=== PATIENT | male | born 1950 | race Two or more races ===

== ENCOUNTER 2017-09-20 07:00 | Day surgery (SDC) | payer MEDICAID ==
[~2017-09-20] VITALS: Ht 170.2 cm; Wt 127.0 kg
[~2017-09-20 07:00] MED LIST: AMIO200T33 PO; CARV12.544 PO; CYCL1TAB18 PO; GLIP1TAB38 PO; HYDR-4683 PO; INSLANTI SC; INSLISPI SC; LISI-646 PO; OMEP20TA PO; PREG100C PO; SIMV-8 PO; TRAM50TA2 PO; WARF2.5T39 PO
[2017-09-20] MEDS ORDERED: LIDOCAINE VISCOUS 2% 15ML UD ONE (07:56)
[2017-09-20] MEDS ORDERED: FLUMAZENIL 0.1 MG/ML INJ 10ML MDV IV ONE ×2 (07:56→08:00)
[2017-09-20] MEDS ORDERED: NALOXONE HCL 0.4 MG/ML VIAL ONE (07:56)
[2017-09-20] MEDS ORDERED: MIDAZOLAM HCL 1MG/1ML-2 ML VIAL ONE (07:57)
[2017-09-20] MEDS ORDERED: fentaNYL CITRATE 100 MCG/2 ML VL ONE (07:57)
[2017-09-20] MEDS ORDERED: fentaNYL CITRATE 100 MCG/2 ML VL IV ONE (08:00)
[2017-09-20] MEDS ORDERED: NALOXONE HCL 0.4 MG/ML VIAL IV ONE (08:00)
[2017-09-20] MEDS ORDERED: LIDOCAINE VISCOUS 2% 15ML UD PO ONE (08:00)
[2017-09-20] MEDS ORDERED: MIDAZOLAM HCL 5 MG/ML-1ML VIAL IV ONE (08:00)
== END 2017-09-20 09:25 | disposition home or self-care (01) ==
LOC: CATH 07:00
PROVIDERS: ATTEND Internal Medicine
DX: I48.91 Unspecified atrial fibrillation (principal); Z88.8 Allergy status to other drugs, medicaments and biological substances; Z91.041 Radiographic dye allergy status; E66.01 Morbid (severe) obesity due to excess calories; Z68.41 Body mass index [BMI] 40.0-44.9, adult; F10.99 Alcohol use, unspecified with unspecified alcohol-induced disorder; Z87.891 Personal history of nicotine dependence; I10 Essential (primary) hypertension; E78.5 Hyperlipidemia, unspecified; E11.40 Type 2 diabetes mellitus with diabetic neuropathy, unspecified
CPT/HCPCS: 92960; J3010; J7030; 93005; 93312; 99152; J2250

== ENCOUNTER 2020-12-02 09:27 | Emergency (ER) | payer BC, MEDICAID ==
[~2020-12-02] VITALS: Ht 170.2 cm; Wt 129.3 kg
[~2020-12-02 09:27] MED LIST changes: +CYCL10TA6 PO; -CYCL1TAB18 PO; +GLIP10TA16 PO; -GLIP1TAB38 PO; -HYDR-4683 PO; +HYDR-4833 PO; -LISI-646 PO; +LISI20TA28 PO
[2020-12-02 10:05] VITALS: BP 122/79
[2020-12-02 13:17] LABS: Basophils # (auto) 0 10 ^3/uL (0-0.2); Basophils % (auto) 0.4 % (0.0-2.0); Eosinophils # (auto) 0 10 ^3/uL (0-0.8); Eosinophils % (auto) 0.5 % (0.0-7.0); Hemoglobin 13.6 g/dL (13.5-17.5); Lymphocytes # (auto) 1.6 10 ^3/uL (0.4-5.4); Lymphocytes % (auto) 19.1 % (10.0-50.0); Mean Corpuscular Hemoglobin 31.2 pg (28.0-32.0); Mean Corpuscular Hgb Conc. 34.1 g/dL (32.0-36.0); Mean Corpuscular Volume 91.7 fL (80.0-100.0); Monocytes # (auto) 0.9 10 ^3/uL (0-1.3); Monocytes % (auto) 10.5 % (0.0-12.0); Neutrophils # (auto) 5.7 10 ^3/uL (1.6-8.6); Neutrophils % (auto) 69.5 % (37.0-80.0); Platelet Count (auto) 173 10^3/uL (140-450); Red Blood Cells 4.36 10^6/uL (4.5-5.90); Red Cell Distribution Width 13.3 % (11.8-14.3); White Blood Cell 8.2 10^3/uL (4.4-10.8)
[2020-12-02 13:32] LABS: Urine Bacteria NONE SEEN /hpf (None Seen); Urine Blood Negative /uL (Negative); Urine Specific Gravity 1.016 (1.001-1.035); Urine WBC 34 /hpf (0 - 3)
[2020-12-02 13:33] LABS: Albumin 3.3 g/dL (3.4-5.0); Calcium 8.2 mg/dL (8.5-10.1); Potassium 4.3 mmol/L (3.5-5.1)
[2020-12-02 13:36] LABS: BUN/Creatinine Ratio 10.7; Bilirubin, Total 0.6 mg/dL (0.2-1.0); Total Protein 7.4 g/dL (6.4-8.2)
== END 2020-12-02 14:03 | disposition home or self-care (01) ==
LOC: ER 09:27
DX: K57.32 Diverticulitis of large intestine without perforation or abscess without bleeding (principal); N39.0 Urinary tract infection, site not specified; I10 Essential (primary) hypertension; E11.9 Type 2 diabetes mellitus without complications; E78.5 Hyperlipidemia, unspecified; Z79.01 Long term (current) use of anticoagulants; Z79.4 Long term (current) use of insulin; Z79.899 Other long term (current) drug therapy; Z88.8 Allergy status to other drugs, medicaments and biological substances; Z91.041 Radiographic dye allergy status
CPT/HCPCS: 36415; 74176; 80053; 81001; 85025

== ENCOUNTER 2022-01-31 00:59 | Emergency (ER) | payer MEDICARE, MEDICAID ==
[~2022-01-31] VITALS: Ht 170.2 cm; Wt 127.3 kg
[~2022-01-31 00:59] MED LIST changes: +CYCL-839 PO; -CYCL10TA6 PO
[2022-01-31 02:22] LABS: Basophils # (auto) 0 10 ^3/uL (0-0.2); Basophils % (auto) 0.7 % (0.0-2.0); Eosinophils # (auto) 0.1 10 ^3/uL (0-0.8); Eosinophils % (auto) 1.2 % (0.0-7.0); Hematocrit 42.1 % (41.0-53.0); Hemoglobin 13.7 g/dL (13.5-17.5); Lymphocytes # (auto) 1.9 10 ^3/uL (0.4-5.4); Lymphocytes % (auto) 33.8 % (10.0-50.0); Mean Corpuscular Hemoglobin 30.5 pg (28.0-32.0); Mean Corpuscular Hgb Conc. 32.6 g/dL (32.0-36.0); Mean Corpuscular Volume 93.7 fL (80.0-100.0); Monocytes # (auto) 0.6 10 ^3/uL (0-1.3); Neutrophils # (auto) 2.9 10 ^3/uL (1.6-8.6); Neutrophils % (auto) 53.3 % (37.0-80.0); Red Blood Cells 4.49 10^6/uL (4.5-5.90); Red Cell Distribution Width 13.6 % (11.8-14.3); White Blood Cell 5.5 10^3/uL (4.4-10.8)
[2022-01-31 03:01] LABS: Albumin 3.5 g/dL (3.4-5.0); BUN/Creatinine Ratio 10.6; Calcium 8.5 mg/dL (8.5-10.1); Magnesium 2.2 mg/dL (1.6-2.6); Potassium 3.9 mmol/L (3.5-5.1)
[2022-01-31 03:04] LABS: Bilirubin, Total 0.3 mg/dL (0.2-1.0); Total Protein 7.2 g/dL (6.4-8.2)
[2022-01-31 08:00] LABS: Urine Bacteria FEW /hpf (None Seen); Urine Blood Negative /uL (Negative); Urine Hyaline Cast FEW /lpf (0 - 2); Urine Mucus FEW (None Seen); Urine Specific Gravity 1.023 (1.001-1.035); Urine WBC 170 /hpf (0 - 3); Urine WBC Clumps PRESENT /hpf (None Seen)
[2022-01-31] MEDS: cefTRIAXone 1GM/50ML D5W 50 ML IV ONE (10:34)
[2022-01-31] MEDS ORDERED: DEX4T PO (14:46)
[2022-01-31] MEDS ORDERED: MECL1TAB42 PO (14:46)
[2022-01-31] MEDS ORDERED: CEFD300C2 PO (14:46)
[2022-01-31] MEDS: DexAMETHasone SOD PHOS 10MG/1ML VIAL INJ IV ONE (14:56)
[2022-01-31 15:10] VITALS: BP 152/74
== END 2022-01-31 15:16 | disposition home or self-care (01) ==
LOC: ER 00:59
DX: R42 Dizziness and giddiness (principal); E78.5 Hyperlipidemia, unspecified; I10 Essential (primary) hypertension; F07.81 Postconcussional syndrome; E11.65 Type 2 diabetes mellitus with hyperglycemia; N39.0 Urinary tract infection, site not specified; E11.21 Type 2 diabetes mellitus with diabetic nephropathy
CPT/HCPCS: 36415; 70450; 80053; 81001; 83735; 84484; 85025; 93005; 96365; 96375; 99285; J0696; J1100

== ENCOUNTER 2022-10-21 23:57 | Emergency (ER) | payer MEDICARE, MEDICAID ==
[~2022-10-21] VITALS: Ht 167.6 cm; Wt 118.0 kg
[~2022-10-21 23:57] MED LIST changes: +CEFD300C2 PO; +DEX4T PO; +MECL1TAB42 PO
[2022-10-22 00:39] LABS: Basophils # (auto) 0.1 10 ^3/uL (0-0.2); Basophils % (auto) 0.9 % (0.0-2.0); Eosinophils # (auto) 0 10 ^3/uL (0-0.8); Eosinophils % (auto) 0.2 % (0.0-7.0); Hematocrit 43.8 % (41.0-53.0); Lymphocytes # (auto) 1.2 10 ^3/uL (0.4-5.4); Lymphocytes % (auto) 10.8 % (10.0-50.0); Mean Corpuscular Hemoglobin 31.8 pg (28.0-32.0); Mean Corpuscular Hgb Conc. 34.2 g/dL (32.0-36.0); Mean Corpuscular Volume 92.9 fL (80.0-100.0); Monocytes # (auto) 0.9 10 ^3/uL (0-1.3); Monocytes % (auto) 7.9 % (0.0-12.0); Neutrophils # (auto) 8.7 10 ^3/uL (1.6-8.6); Neutrophils % (auto) 80.2 % (37.0-80.0); Nucleated Red Blood Cells % 0.1 %; Red Blood Cells 4.72 10^6/uL (4.5-5.90); Red Cell Distribution Width 13.4 % (11.8-14.3); White Blood Cell 10.8 10^3/uL (4.4-10.8)
[2022-10-22 00:54] LABS: Albumin 3.3 g/dL (3.4-5.0); BUN/Creatinine Ratio 9.6 (10.0-20.0); Calcium 8.7 mg/dL (8.5-10.1); Potassium 3.7 mmol/L (3.5-5.1)
[2022-10-22 00:57] LABS: Bilirubin, Total 0.4 mg/dL (0.2-1.0); Total Protein 7.9 g/dL (6.4-8.2)
[2022-10-22 05:10] VITALS: BP 112/70
[2022-10-22] MEDS ORDERED: AZIT250T9 PO (07:00)
== END 2022-10-22 07:11 | disposition home or self-care (01) ==
LOC: ER 23:57
DX: R06.02 Shortness of breath (principal); R50.9 Fever, unspecified; R05.9 Cough, unspecified; I11.0 Hypertensive heart disease with heart failure; I50.9 Heart failure, unspecified; I48.91 Unspecified atrial fibrillation; E11.9 Type 2 diabetes mellitus without complications; E78.5 Hyperlipidemia, unspecified; Z20.822 Contact with and (suspected) exposure to COVID-19
CPT/HCPCS: 36415; 71045; 80053; 83880; 84484; 85025; 87426; 87804; 93005

== ENCOUNTER 2023-02-25 20:36 | Inpatient (IN) | payer OTHER, MEDICAID ==
[~2023-02-25] VITALS: Ht 170.2 cm; Wt 118.7 kg
[~2023-02-25 20:36] MED LIST changes: +AZIT-43 PO; -GLIP10TA16 PO; +GLIP10TA21 PO; -LISI20TA28 PO; +LISI20TA56 PO; -SIMV-8 PO; +SIMV20TA20 PO; +WARF-110 PO; -WARF2.5T39 PO
[2023-02-25 21:02] VITALS: RESP 20; O2SAT 96
[2023-02-25 21:40] LABS: Basophils # (auto) 0.1 10 ^3/uL (0-0.2); Basophils % (auto) 0.8 % (0.0-2.0); Eosinophils # (auto) 0.2 10 ^3/uL (0-0.8); Eosinophils % (auto) 1.9 % (0.0-7.0); Hematocrit 42.8 % (41.0-53.0); Hemoglobin 14.4 g/dL (13.5-17.5); Lymphocytes # (auto) 2.5 10 ^3/uL (0.4-5.4); Lymphocytes % (auto) 30.8 % (10.0-50.0); Mean Corpuscular Hemoglobin 31.1 pg (28.0-32.0); Mean Corpuscular Hgb Conc. 33.6 g/dL (32.0-36.0); Mean Corpuscular Volume 92.6 fL (80.0-100.0); Monocytes # (auto) 0.9 10 ^3/uL (0-1.3); Monocytes % (auto) 11.4 % (0.0-12.0); Neutrophils # (auto) 4.4 10 ^3/uL (1.6-8.6); Neutrophils % (auto) 55.1 % (37.0-80.0); Nucleated Red Blood Cells % 0.1 %; Red Blood Cells 4.62 10^6/uL (4.5-5.90); Red Cell Distribution Width 13.7 % (11.8-14.3); White Blood Cell 8.1 10^3/uL (4.4-10.8)
[2023-02-25 21:50] LABS: Alanine Aminotransferase 17 U/L (7-40); Alkaline Phosphatase 57 U/L (46-116); Anion Gap 8 (5-15); Aspartate Aminotransferase 17 U/L (13-40); BUN/Creatinine Ratio 6.3 (10.0-20.0); Blood Urea Nitrogen 14 mg/dL (9-23); Calcium 9.2 mg/dL (8.5-10.1); Carbon Dioxide 23 mmol/L (20-30); Chloride 106 mmol/L (98-107); Glucose 276 mg/dL (74-106); Magnesium 1.4 mg/dL (1.6-2.6); Potassium 3.9 mmol/L (3.5-5.1); Sodium 137 mmol/L (136-145)
[2023-02-25 21:51] LABS: Albumin 4.2 g/dL (3.2-4.8); Bilirubin, Total 0.9 mg/dL (0.2-1.0); Lactic Acid w/Reflex 2.9 mmol/L (0.4-2.0)
[2023-02-25 22:53] LABS: INR 1.19 (0.9-1.15); Prothrombin Time 12.4 sec (9.3-11.8)
[2023-02-25] MEDS ORDERED: NOREPINEPHRINE 8 MG/250ML KIT 250 ML IV SCH (23:45)
[2023-02-25] MEDS ORDERED: NOREPINEPHRINE 8 MG/250ML KIT 250 ML IV ONE (23:49)
[2023-02-26] VITALS (19 sets, daily range): BP systolic 101–147; BP diastolic 56–71; PULSE 57–65; RESP 9–21; TEMP 96.1–98.3; O2SAT 92–100
[2023-02-26] MEDS ORDERED: cefTRIAXone 1GM/50ML D5W 50 ML IV ONE (02:45)
[2023-02-26] MEDS ORDERED: LIDOCAINE 2%HCL (LOCAL ANESTH.) INJ 10ml MDV IJ ONE (03:00)
[2023-02-26] MEDS ORDERED: hydrALAZINE HCL 10 MG TAB PO PRN (05:30)
[2023-02-26] MEDS ORDERED: DEXTROSE (50%) 50ML SYRG IV PRN (05:30)
[2023-02-26] MEDS ORDERED: ONDANSETRON HCL 4 MG/2 ML VIAL IV PRN (05:30)
[2023-02-26] MEDS ORDERED: ACETAMINOPHEN 325 MG TAB PO PRN (05:30)
[2023-02-26] MEDS ORDERED: HYDROcodone-ACET 5/325MG TAB PO PRN (05:30)
[2023-02-26] MEDS ORDERED: SODIUM CHLORIDE 0.9% 1,000 ML IV ONE (06:00)
[2023-02-26] MEDS: MAGNESIUM SULFATE 1GM/100ML 100 ML IV SCH ×2 (06:30→07:01)
[2023-02-26 06:31] LABS: Anion Gap 7 (5-15); Carbon Dioxide 25 mmol/L (20-30); Chloride 106 mmol/L (98-107); Potassium 3.6 mmol/L (3.5-5.1); Sodium 138 mmol/L (136-145)
[2023-02-26 06:32] LABS: Calcium 8.5 mg/dL (8.7-10.4)
[2023-02-26 06:37] LABS: BUN/Creatinine Ratio 7.3 (10.0-20.0); Blood Urea Nitrogen 14 mg/dL (9-23)
[2023-02-26 06:42] LABS: Glucose 167 mg/dL (74-106)
[2023-02-26] MEDS: InsuLIN REG 1unit/0.01ml Soln (100units/ml) SC SCH ×4 (07:09→22:11)
[2023-02-26] MEDS: ACCU-CHEK COMFORT CURVE STRIP VI SCH ×4 (07:09→22:10)
[2023-02-26 07:19] LABS: Urine Bacteria FEW /hpf (None Seen); Urine Blood TRACE /uL (Negative); Urine Clarity Clear (Clear); Urine Color Yellow (Yellow); Urine Hyaline Cast MANY /lpf (0 - 2); Urine Mucus FEW (None Seen); Urine Protein, UAD TRACE (Negative); Urine Specific Gravity 1.013 (1.001-1.035); Urine Urobilinogen Normal (Negative); Urine WBC 24 /hpf (0 - 3); Urine pH 5.5 (5.0-8.0)
[2023-02-26] MEDS: FAMOTIDINE 20 MG TAB PO SCH (10:39)
[2023-02-26 11:27] LABS: Protein, Urine 25.2 mg/dL (0.0-11.9)
[2023-02-26 11:30] LABS: Creatinine, Urine 113.32 mg/dL (30.0-125.0); Urine Protein/Creatinine Ratio 0.22
[2023-02-26] MEDS ORDERED: RIVA20TA PO (19:42)
[2023-02-26] MEDS ORDERED: SITA100T7 PO (19:43)
[2023-02-27] VITALS (8 sets, daily range): BP systolic 114–137; BP diastolic 58–69; PULSE 60–67; RESP 17–20; TEMP 97.3–98.3; O2SAT 97–100
[2023-02-27] MEDS: InsuLIN REG 1unit/0.01ml Soln (100units/ml) SC SCH ×4 (06:03→21:31)
[2023-02-27] MEDS: ACCU-CHEK COMFORT CURVE STRIP VI SCH ×4 (06:03→21:27)
[2023-02-27 06:42] LABS: Basophils # (auto) 0 10 ^3/uL (0-0.2); Basophils % (auto) 0.7 % (0.0-2.0); Eosinophils # (auto) 0.1 10 ^3/uL (0-0.8); Eosinophils % (auto) 2.6 % (0.0-7.0); Hematocrit 41.9 % (41.0-53.0); Lymphocytes # (auto) 1.5 10 ^3/uL (0.4-5.4); Lymphocytes % (auto) 29.1 % (10.0-50.0); Mean Corpuscular Hemoglobin 31.2 pg (28.0-32.0); Mean Corpuscular Hgb Conc. 33.4 g/dL (32.0-36.0); Mean Corpuscular Volume 93.4 fL (80.0-100.0); Monocytes # (auto) 0.6 10 ^3/uL (0-1.3); Monocytes % (auto) 10.9 % (0.0-12.0); Neutrophils # (auto) 2.9 10 ^3/uL (1.6-8.6); Neutrophils % (auto) 56.7 % (37.0-80.0); Red Blood Cells 4.48 10^6/uL (4.5-5.90); Red Cell Distribution Width 13.6 % (11.8-14.3); White Blood Cell 5.1 10^3/uL (4.4-10.8)
[2023-02-27 06:58] LABS: Anion Gap 4 (5-15); Calcium 8.9 mg/dL (8.7-10.4); Carbon Dioxide 29 mmol/L (20-30); Chloride 105 mmol/L (98-107); Potassium 3.9 mmol/L (3.5-5.1); Sodium 138 mmol/L (136-145)
[2023-02-27 07:04] LABS: Glucose 261 mg/dL (74-106)
[2023-02-27 07:08] LABS: BUN/Creatinine Ratio 8.1 (10.0-20.0); Blood Urea Nitrogen 11 mg/dL (9-23)
[2023-02-27] MEDS: FAMOTIDINE 20 MG TAB PO SCH (10:16)
[2023-02-27] MEDS: cefTRIAXone 1GM/50ML D5W 50 ML IV SCH (10:16)
[2023-02-27] MEDS ORDERED: INSLANTI SC (18:28)
[2023-02-27] MEDS ORDERED: INSULIN LANTUS (GLARGINE) 1 /0.01ml (100units/ml) SC SCH (22:00)
[2023-02-28 05:00] VITALS: BP 117/60; PULSE 59; RESP 16; TEMP 98; O2SAT 100
[2023-02-28] MEDS: ACCU-CHEK COMFORT CURVE STRIP VI SCH ×2 (06:12→11:46)
[2023-02-28] MEDS: InsuLIN REG 1unit/0.01ml Soln (100units/ml) SC SCH ×2 (06:14→11:56)
[2023-02-28 08:00] VITALS: PULSE 59
[2023-02-28 09:24] VITALS: BP 116/57; PULSE 64; RESP 20; TEMP 97.7; O2SAT 100
[2023-02-28] MEDS: FAMOTIDINE 20 MG TAB PO SCH (09:45)
[2023-02-28] MEDS: cefTRIAXone 1GM/50ML D5W 50 ML IV SCH (09:45)
[2023-02-28 13:16] VITALS: BP 119/61; PULSE 64; RESP 18; TEMP 98.1; O2SAT 99
[2023-02-28] MEDS ORDERED: MUPI2OIN2 (13:51)
[2023-02-28] MEDS ORDERED: MUPIROCIN 2% OINT 15gm or 22gm FOR MRSA NARES TOP SCH (22:00)
== END 2023-02-28 17:00 | disposition home or self-care (01) | DRG 640 ==
LOC: ER 20:36 → TELE 02-26 05:42 → ICU WEST 02-26 07:32 → TELE-CENTR 02-26 18:36
PROVIDERS: ADMIT Nurse Practitioner Family; ATTEND Internal Medicine
DX: E86.0 Dehydration (principal); N17.0 Acute kidney failure with tubular necrosis; I13.0 Hypertensive heart and chronic kidney disease with heart failure and stage 1 through stage 4 chronic kidney disease, or unspecified chronic kidney disease; N39.0 Urinary tract infection, site not specified; E66.9 Obesity, unspecified; E87.20 Acidosis, unspecified; I95.9 Hypotension, unspecified; E83.42 Hypomagnesemia; E11.22 Type 2 diabetes mellitus with diabetic chronic kidney disease; E11.65 Type 2 diabetes mellitus with hyperglycemia; I25.10 Atherosclerotic heart disease of native coronary artery without angina pectoris; I48.91 Unspecified atrial fibrillation; E78.00 Pure hypercholesterolemia, unspecified; I50.9 Heart failure, unspecified; R00.1 Bradycardia, unspecified; N18.31 Chronic kidney disease, stage 3a; B95.62 Methicillin resistant Staphylococcus aureus infection as the cause of diseases classified elsewhere; Z91.041 Radiographic dye allergy status; Z68.39 Body mass index [BMI] 39.0-39.9, adult
CPT/HCPCS: 36415; 70450; 71045; 76775; 80048; 80053; 81001; 82306; 82570; 82962; 83036; 83605; 83735; 83880; 83970; 84100; 84156; 84300; 84484; 85025; 85610; 85730; 87040; 87081; 87086; 93005; 97163; 99291; G0378; J0696; J1815; J2001

== ENCOUNTER 2023-04-27 00:09 | Inpatient (IN) | payer OTHER, MEDICAID ==
[2023-04-27] VITALS (7 sets, daily range): BP systolic 127–149; BP diastolic 56–73; PULSE 66–91; RESP 12–21; TEMP 97.6–101.4; O2SAT 93–99
[~2023-04-27] VITALS: Ht 170.2 cm; Wt 116.0 kg
[~2023-04-27 00:09] MED LIST changes: -AMIO200T33 PO; -AZIT-43 PO; -CARV12.544 PO; -CEFD300C2 PO; -CYCL-839 PO; -DEX4T PO; -LISI20TA56 PO; +MUPI2OIN2; +RIVA20TA PO; +SITA100T7 PO; -TRAM50TA2 PO; -WARF-110 PO
[2023-04-27 00:52] LABS: Basophils # (auto) 0 10 ^3/uL (0-0.2); Basophils % (auto) 0.5 % (0.0-2.0); Eosinophils # (auto) 0 10 ^3/uL (0-0.8); Hematocrit 42.1 % (41.0-53.0); Hemoglobin 14.2 g/dL (13.5-17.5); Lymphocytes # (auto) 0.8 10 ^3/uL (0.4-5.4); Mean Corpuscular Hemoglobin 31.1 pg (28.0-32.0); Mean Corpuscular Hgb Conc. 33.8 g/dL (32.0-36.0); Monocytes # (auto) 0.8 10 ^3/uL (0-1.3); Monocytes % (auto) 10.4 % (0.0-12.0); Neutrophils # (auto) 5.7 10 ^3/uL (1.6-8.6); Neutrophils % (auto) 78.1 % (37.0-80.0); Red Blood Cells 4.58 10^6/uL (4.5-5.90); Red Cell Distribution Width 13.2 % (11.8-14.3); White Blood Cell 7.3 10^3/uL (4.4-10.8)
[2023-04-27 01:06] LABS: Alanine Aminotransferase 19 U/L (7-40); Albumin 4.2 g/dL (3.2-4.8); Alkaline Phosphatase 56 U/L (46-116); Anion Gap 7 (5-15); Aspartate Aminotransferase 20 U/L (13-40); BUN/Creatinine Ratio 7.8 (10.0-20.0); Bilirubin, Total 0.5 mg/dL (0.2-1.0); Blood Urea Nitrogen 10 mg/dL (9-23); Calcium 8.5 mg/dL (8.7-10.4); Carbon Dioxide 22 mmol/L (20-30); Chloride 107 mmol/L (98-107); Glucose 310 mg/dL (74-106); Magnesium 1.3 mg/dL (1.6-2.6); Potassium 3.7 mmol/L (3.5-5.1); Sodium 136 mmol/L (136-145); Total Protein 6.9 g/dL (5.7-8.2)
[2023-04-27 02:16] LABS: COVID19 ANTIGEN SOFIA FIA POSITIVE (NEGATIVE)
[2023-04-27] MEDS ORDERED: IBUPROFEN 600 MG TAB PO ONE (03:00)
[2023-04-27] MEDS ORDERED: NITROGLYCERIN 0.4 MG SL TAB SL PRN (05:15)
[2023-04-27] MEDS ORDERED: ONDANSETRON HCL 4 MG/2 ML VIAL IV PRN (05:15)
[2023-04-27] MEDS ORDERED: MORPHINE SULFATE INJ 2 MG/ml SYRG IV PRN (05:15)
[2023-04-27] MEDS ORDERED: ALBUTEROL MEDNEB 2.5 mg/3ml NEB NEB ONE (05:30)
[2023-04-27] MEDS ORDERED: LACTATED RINGER'S 1,000 ML IV ONE (05:30)
[2023-04-27] MEDS ORDERED: hydrALAZINE HCL 10 MG TAB PO PRN (05:45)
[2023-04-27] MEDS ORDERED: HYDROcodone-ACET 5/325MG TAB PO PRN (05:45)
[2023-04-27] MEDS ORDERED: ACETAMINOPHEN 325 MG TAB PO PRN (05:45)
[2023-04-27] MEDS: MAGNESIUM SULFATE 1GM/100ML 100 ML IV SCH ×2 (06:00→07:32)
[2023-04-27] MEDS: ASPirin 81 mg TAB PO SCH (06:01)
[2023-04-27 06:31] LABS: Triglycerides 115 mg/dL (< 150)
[2023-04-27 06:32] LABS: LDL Cholesterol 66 mg/dL (< 100)
[2023-04-27 06:33] LABS: Cholesterol 125 mg/dL (< 200); HDL Cholesterol 41 mg/dL (40-59)
[2023-04-27] MEDS ORDERED: DEXTROSE (50%) 50ML SYRG IV PRN (07:15)
[2023-04-27] MEDS: ASCORBIC ACID 500 MG TAB PO SCH ×2 (09:40→23:21)
[2023-04-27] MEDS: CHOLECALCIFEROL (VITD3) 2,000 UNIT CAP/TAB PO SCH (09:40)
[2023-04-27] MEDS: InsuLIN REG 1unit/0.01ml Soln (100units/ml) SC SCH ×3 (11:44→23:22)
[2023-04-27] MEDS: ACCU-CHEK COMFORT CURVE STRIP VI SCH ×3 (11:45→23:21)
[2023-04-27] MEDS ORDERED: CARV6.2551 PO (13:30)
[2023-04-27] MEDS ORDERED: LISI-275 PO (13:30)
[2023-04-27] MEDS ORDERED: LATA0.008 EACHEYE (13:30)
[2023-04-27] MEDS ORDERED: METF-372 PO (13:30)
[2023-04-27] MEDS: FLUTICASONE PROP NASAL SPR 0.05 % (50MCG) 16GM EACHNOSTRI SCH ×2 (18:00→22:00)
[2023-04-27] MEDS: ATORVASTATIN 20 MG TAB PO SCH (23:21)
[2023-04-28] VITALS (7 sets, daily range): BP systolic 109–136; BP diastolic 48–88; PULSE 58–74; RESP 16–20; TEMP 97.5–99.9; O2SAT 93–99
[2023-04-28] MEDS: InsuLIN REG 1unit/0.01ml Soln (100units/ml) SC SCH ×4 (07:14→20:58)
[2023-04-28] MEDS: ACCU-CHEK COMFORT CURVE STRIP VI SCH ×4 (07:14→20:57)
[2023-04-28] MEDS: ASCORBIC ACID 500 MG TAB PO SCH ×2 (08:55→20:51)
[2023-04-28] MEDS: ASPirin 81 mg TAB PO SCH (08:55)
[2023-04-28] MEDS: CHOLECALCIFEROL (VITD3) 2,000 UNIT CAP/TAB PO SCH (08:56)
[2023-04-28] MEDS: FLUTICASONE PROP NASAL SPR 0.05 % (50MCG) 16GM EACHNOSTRI SCH ×2 (09:01→20:57)
[2023-04-28] MEDS ORDERED: DexAMETHasone SOD PHOS 10MG/1ML VIAL INJ IV ONE (14:30)
[2023-04-28] MEDS: ATORVASTATIN 20 MG TAB PO SCH (20:51)
[2023-04-29 05:00] VITALS: BP 120/50; PULSE 61; RESP 18; TEMP 97.4; O2SAT 96
[2023-04-29] MEDS: ACCU-CHEK COMFORT CURVE STRIP VI SCH ×2 (06:17→11:38)
[2023-04-29] MEDS: InsuLIN REG 1unit/0.01ml Soln (100units/ml) SC SCH ×2 (06:24→11:43)
[2023-04-29 07:30] VITALS: TEMP 36.3
[2023-04-29 08:00] VITALS: PULSE 55
[2023-04-29 08:35] VITALS: BP 137/83; PULSE 71; RESP 20; TEMP 98; O2SAT 97
[2023-04-29] MEDS: ASPirin 81 mg TAB PO SCH (09:27)
[2023-04-29] MEDS: ASCORBIC ACID 500 MG TAB PO SCH (09:27)
[2023-04-29] MEDS: CHOLECALCIFEROL (VITD3) 2,000 UNIT CAP/TAB PO SCH (09:27)
[2023-04-29] MEDS: FLUTICASONE PROP NASAL SPR 0.05 % (50MCG) 16GM EACHNOSTRI SCH (09:28)
[2023-04-29] MEDS ORDERED: ZINC SULFATE 220mg CAP or TAB PO SCH (10:00)
[2023-04-29] MEDS ORDERED: DexAMETHasone SOD PHOS 10MG/1ML VIAL INJ IV SCH (10:00)
[2023-04-29] MEDS ORDERED: FLUT250M2 INH (11:57)
[2023-04-29] MEDS ORDERED: DEX4T PO (11:57)
[2023-04-29] MEDS ORDERED: DOXY-447 PO (11:57)
[2023-04-29 12:42] VITALS: BP 142/72; PULSE 63; RESP 19; TEMP 97.5; O2SAT 97
[2023-04-29 14:52] VITALS: TEMP 36.4
== END 2023-04-29 15:00 | disposition home or self-care (01) | DRG 177 ==
LOC: ER 00:09 → TELE-CENTR 05:28 → TELE 05:28 → TELE-CENTR 11:06
PROVIDERS: ADMIT Nurse Practitioner Family; ATTEND Nurse Practitioner Family
DX: U07.1 COVID-19 (principal); J12.82 Pneumonia due to coronavirus disease 2019; J96.21 Acute and chronic respiratory failure with hypoxia; J44.0 Chronic obstructive pulmonary disease with (acute) lower respiratory infection; Z68.41 Body mass index [BMI] 40.0-44.9, adult; I50.9 Heart failure, unspecified; I48.91 Unspecified atrial fibrillation; I11.0 Hypertensive heart disease with heart failure; E83.42 Hypomagnesemia; E78.5 Hyperlipidemia, unspecified; E66.01 Morbid (severe) obesity due to excess calories; E11.65 Type 2 diabetes mellitus with hyperglycemia; E83.51 Hypocalcemia; Z82.0 Family history of epilepsy and other diseases of the nervous system; Z82.49 Family history of ischemic heart disease and other diseases of the circulatory system; Z91.041 Radiographic dye allergy status
CPT/HCPCS: 36415; 71045; 80053; 80061; 82962; 83605; 83735; 83880; 84484; 85025; 87426; 93005; 93306; 94640; G0378; J1100; J1815

== ENCOUNTER 2025-05-08 18:47 | Emergency (ER) | payer OTHER, MEDICAID ==
[~2025-05-08] VITALS: Ht 170.2 cm; Wt 121.9 kg
[~2025-05-08 18:47] MED LIST changes: +CARV6.2551 PO; +DEX4T PO; +DOXY1CAP58 PO; +FLUT250M2 INH; +LATA0.008 EACHEYE; +LISI-275 PO; -MECL1TAB42 PO; +METF-372 PO; -MUPI2OIN2
--- NOTE | 2025-05-08 19:25 | ED.PDOC ---
HPI Comments 74 year old male with PMHx a-fib, CHF, HTN, HLD, DM presents to the ED with a chief complaint of chest pain onset 1 day. Patient states he was working on a vehicle yesterday, was leaning over applying pressure to chest, began experiencing chest pain resolved after a few hours. Patient was watching tv, began experiencing chest pain, described as a dull and pressure sensation. 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 Denies shortness of breath, dizziness, numbness/tingling, fever, chills, nausea, vomiting, diarrhea, headache, blurred vision. No other symptoms or modifying factors present at this time. Chief Complaint: Chest Pain Time Seen by MD: 19:15 Primary Care Provider: NADEGE Reviewed Notes: Medications, Allergies Allergies: Coded Allergies: Iodine (Verified Allergy, Unknown, 09/13/17) Uncoded Allergies: IV Contrast (Allergy, Unknown, 09/13/17) Home Meds Active Scripts Fluticasone-Salmeterol (Advair Diskus 250/50) 1 Puff Ih, 1 PUFF INH BID, #1 INHA LER Prov:DINA DURAN MD 04/29/23 Doxycycline (Monohydrate) (Doxycycline) 100 Mg Cap, 100 MG PO BID, #10 CAP Prov:DINA DURAN MD 04/29/23 Dexamethasone (Decadron) 4 Mg Tb, 4 TAB PO DAILY, #4 TAB Prov:DINA DURAN MD 04/29/23 Reported Medications Metformin Hydrochloride (Metformin Hcl) 1,000 Mg Tab, 1 TAB PO BID 04/27/23 Carvedilol (Carvedilol) 6.25 Mg Tab, 1 TAB PO BID 04/27/23 Lisinopril (Lisinopril) 5 Mg Tab, 1 TAB PO DAILY 04/27/23 Latanoprost (LATANOPROST) 0.005 % Ashley, 1 DROP EACHEYE 04/27/23 Sitagliptin Phosphate (Januvia) 100 Mg Tab, 1 TAB PO DAILY 02/26/23 Rivaroxaban (XARELTO) 20 Mg Tab, 1 TAB PO BID, #90 TAB 3 Refills 02/26/23 Simvastatin (Simvastatin) 20 Mg Tab, 1 TAB PO QPM, #30 TAB 5 Refills 09/13/17 Hydrocodone-Acetaminophen (Allen 5/325MG) 1 Tab Tb, 1 TAB PO BID PRN for BREAKTHROUGH PAIN, #60 TAB 09/13/17 Omeprazole (Gnp Omeprazole) 20 Mg Tab, 2 TAB PO DAILY, #90 TAB 1 Refill 09/13/17 Insulin Glargine (Lantus) 100 Unit/Ml Inj, 60 UNIT SC HS, INJ 09/13/17 Insulin Lispro (Human) (Humalog) 100 Mg/Ml Inj, 10 MG SC TIDWM, INJ 09/13/17 Pregabalin (Lyrica) 100 Mg Cap, 1 CAP PO TID, #90 CAP 2 Refills 09/13/17 Glipizide (Glipizide Er) 10 Mg Tab, 1 TAB PO BID, #90 TAB 1 Refill 09/13/17 Information Source: Patient Mode of Arrival: Ambulatory Severity: Moderate Timing: Days Duration: Since onset Prehospital treatment: None Location: Chest (L) Radiation: No Radiation Quality: Pressure Onset: At Rest Cardiac Risk Factors: Hyperlipidemia, HTN, Diabetes PE Risk Factors: None History of: None Modifying Factors: Nothing Past Medical History PAST MEDICAL HISTORY: AFIB, CHF, DM, High Lipids, HTN Surgical History: Denies all surgeries Family History Family History: Reviewed,noncontributory to illness Social History Smoker: Non-Smoker Alcohol: Denies ETOH Use Drugs: Denies Drug Use Lives In: Home Constitutional: denies: chills, diaphoresis, fatigue, fever, malaise, sweats, weakness, others EENTM: denies: blurred vision, double vision, ear bleeding, ear discharge, ear drainage, ear pain, ear ringing, eye pain, eye redness, hearing loss, mouth pain, mouth swelling, nasal discharge, nose bleeding, nose congestion, nose pain, photophobia, tearing, throat pain, throat swelling, voice changes, others Respiratory: denies: cough, hemoptysis, orthopnea, SOB at rest, shortness of breath, SOB with excertion, stridor, wheezing, others Cardiovascular: reports: chest pain; denies: dizzy spells, diaphoresis, Dyspnea on exertion, edema, irregular heart beat, left arm pain, lightheadedness, palpitations, PND, syncope, others Gastrointestinal: denies: abdomen distended, abdominal pain, blood streaked bowels, constipated, diarrhea, dysphagia, difficulty swallowing, hematemesis, melena, nausea, poor appetite, poor fluid intake, rectal bleeding, rectal pain, vomiting, others Genitourinary: denies: burning, dysuria, flank pain, frequency, hematuria, incontinence, penile discharge, penile sore, pain, testicle pain, testicle swelling, urgency, others Neurological: denies: dizziness, fainting, headache, left sided numbness, left sided weakness, numbness, paresthesia, pre-existing deficit, right sided numbness, right sided weakness, seizure, speech problems, tingling, tremors, weakness, others Musculoskeletal: denies: back pain, gout, joint pain, joint swelling, muscle pain, muscle stiffness, neck pain, others Integumetry: denies: bruises, change in color, change in hair/nails, dryness, laceration, lesions, lumps, rash, wounds, others Allergic/Immunocompromised: denies: Difficulty Healing, Frequent Infections, Hives, Itching, others Hematologic/Lymphatic: denies: anemia, blood clots, easy bleeding, easy bruising, swollen glands, others Endocrine: denies: excessive hunger, excessive sweating, excessive thirst, excessive urination, flushing, intolerance to cold, intolerance to heat, unexplained weight gain, unexplained weight loss, others Psychiatric: denies: anxiety, bipolar disorder, depression, hopeless, panic disorder, schizophrenia, sleepless, suicidal, others All Other Systems: Reviewed and Negative Physical Exam General Appearance: Normal HEENT: Normal ENT Inspection, Pharynx Normal, TMs Normal Neck: Full Range of Motion, Non-Tender, Normal, Normal Inspection Respiratory: Chest Non-Tender, Lungs Clear, No Accessory Muscle Use, No Respiratory Distress, Normal Breath Sounds Cardiovascular: No Edema, No JVD, No Murmur, No Gallop, Normal Peripheral Pulses, Regular Rate/Rhythm Breast Exam: Deferred Gastrointestinal: No Organomegaly, Non Tender, No Pulsatile Mass, Normal Bowel Sounds, Soft Genitalia: Deferred Pelvic: Deferred Rectal: Deferred Extremities: No calf tenderness, Normal capillary refill, Normal inspection, Normal range of motion, Non-tender, No pedal edema Musculoskeletal : Apperance: Normal Neurologic: Alert, drawbridge tender II-XII nml as Tested, No Motor Deficits, Normal Affect, Normal Mood, No Sensory Deficits Cerebellar Function: Normal Reflexes: Normal Skin: Dry, Normal Color, Warm Lymphatic: No Adenopathy Was a procedure done? Was a procedure done?: No CP Differential Dx Differential Diagnosis: A-fib, A-Flutter, Hyperthyroidism, Hyperventilation, PAC's, V-Fib, V-Tach, Other X-Ray, Labs, Meds, VS Vital Signs Date Time Temp Pulse Resp B/P (MAP) Pulse Ox O2 Delivery O2 Flow Rate FiO2 05/08/25 20:47 98.6 58 18 134/71 (92) 95 98.6 05/08/25 20:47 89 98 Room Air* 0 21 05/08/25 19:53 101 05/08/25 18:53 82 05/08/25 18:49 98.3 95 16 158/106 96 98.3 Lab Test 05/08/25 20:53 05/08/25 20:32 05/08/25 19:46 05/08/25 19:00 Range/Units POC Glucose 93 78 70-106 mg/dl Troponin I High Sensitivity 10 10 </=54 ng/L White Blood Count 8.0 4.4-10.8 10^3/uL Red Blood Count 5.07 4.5-5.90 10^6/uL Hemoglobin 16.0 13.5-17.5 g/dL Hematocrit 47.3 41.0-53.0 % Mean Corpuscular Volume 93.2 80.0-100.0 fL Mean Corpuscular Hemoglobin 31.6 28.0-32.0 pg Mean Corpuscular Hemoglobin Concent 33.9 32.0-36.0 g/dL Red Cell Distribution Width 13.0 11.8-14.3 % Platelet Count 195 140-450 10^3/uL Mean Platelet Volume 10.3 6.9-10.8 fL Neutrophils (%) (Auto) 46.3 37.0-80.0 % Lymphocytes (%) (Auto) 40.3 10.0-50.0 % Monocytes (%) (Auto) 11.8 0.0-12.0 % Eosinophils (%) (Auto) 1.0 0.0-7.0 % Basophils (%) (Auto) 0.6 0.0-2.0 % Neutrophils # (Auto) 3.7 1.6-8.6 10 ^3/uL Lymphocytes # (Auto) 3.2 0.4-5.4 10 ^3/uL Monocytes # (Auto) 0.9 0-1.3 10 ^3/uL Eosinophils # (Auto) 0.1 0-0.8 10 ^3/uL Basophils # (Auto) 0.1 0-0.2 10 ^3/uL Nucleated Red Blood Cells 0.2 % Sodium Level 147 H 136-145 mmol/L Potassium Level 3.5 3.5-5.1 mmol/L Chloride Level 107 98-107 mmol/L Carbon Dioxide Level 29 20-31 mmol/L Anion Gap 11 5-15 Blood Urea Nitrogen 13 9-23 mg/dL Creatinine 1.42 H 0.700-1.30 mg/dL Glomerular Filtration Rate Calc 53 >90 mL/min BUN/Creatinine Ratio 9.2 L 10.0-20.0 Serum Glucose 47 *L 74-106 mg/dL Calcium Level 9.4 8.7-10.4 mg/dL Total Bilirubin 0.5 0.2-1.0 mg/dL Aspartate Amino Transferase (AST) 28 13-40 U/L Alanine Aminotransferase (ALT) 24 7-40 U/L Alkaline Phosphatase 63 46-116 U/L B-Type Natriuretic Peptide 95.97 0-100 pg/mL Total Protein 7.5 5.7-8.2 g/dL Albumin 4.2 3.2-4.8 g/dL [place] [id number] DIAGNOSTIC IMAGING Diagnostic Imaging Report : [id number] Signed PATIENT: DESIRE GUEVARA ACCT: [id number] UNIT: [id number] : 1950 LOC: ER ROOM / BED: / AGE / SEX: 74 / M ADM STATUS: REG ER SERVICE 02 ORDERING PHYSICIAN: GIANNA FREGOSO MD PROCEDURE(s): CXRP - CHEST PORTABLE REASON: chest pain ORDER NUMBER(s): [id number], ACCESSION NUMBER(s): [id number] CHEST RADIOGRAPH Indication: chest pain Technique: Single frontal view of the chest was obtained Comparison: XY CHEST PORTABLE on DOS: 04/27/23, XY CHEST PORTABLE on DOS: 02/26/23, XY CHEST PORTABLE on DOS: 02/25/23 FINDINGS: Lines and Tubes: None Lungs: No focal consolidation. Pleura: No effusion. No pneumothorax. Cardiomediastinal contours: Unremarkable Bones: No acute osseous abnormality. IMPRESSION: 1. No acute cardiopulmonary disease. ATED BY: NELLA ALVARENGA Jr., DO DICTATED DATE/TIME: 05/08/252003 SIGNED BY: NELLA ALVARENGA Jr., SIGNED DATE/TIME: 05/08/252003 CC: Time of 1ST Reevaluation: 19:45 Reevaluation 1ST: Unchanged Patient Education/Counseling: Diagnosis, Treatment, Prognosis Family Education/Counseling: No Family Present SEPSIS Sepsis Screen Date sepsis recognized/suspect: May 08, 2025 Time Sepsis recognized/suspect: 1848 Recent Procedure: No On Antibiotic Therapy: No Respiratory Rate >20: No Heart Rate >90: No Temp<36 C (96.8 F) or >38.3 C: No SBP <90 or MAP <65 mmHG: No New Acute Mental Status Change: No Is the patient on CPAP, BIPAP,: No Physician Orders Electrocardigram (05/08/25 21:50) Chest Portable (05/08/25 19:03) Vital Signs Date Time Temp Pulse Resp B/P (MAP) Pulse Ox O2 Delivery O2 Flow Rate FiO2 05/08/25 20:47 98.6 58 18 134/71 (92) 95 98.6 05/08/25 20:47 89 98 Room Air* 0 21 05/08/25 19:53 101 05/08/25 18:53 82 05/08/25 18:49 98.3 95 16 158/106 96 98.3 Laboratory Tests Test 05/08/25 19:00 White Blood Count 8.0 10^3/uL (4.4-10.8) Departure 1 Departure Time of Disposition: 21:40 Impression: Primary Impression: Atypical chest pain Disposition: 01 HOME / SELF CARE / HOMELESS Condition: Stable Discharged With: Self Critical Care Note Critical Care Time?: No Stability Stability form required: No Heart Score Heart Score: Heart Score Response (Comments) Value History Slightly Suspicious 0 EKG Repolarization Disturb 1 Age >65 2 Risk Factors 1 or 2 risk factors 1 Troponin Normal limit 0 Total 4 I personally scribed for GIANNA FREGOSO MD ([email or web address]) on 05/08/25 at 19:25. Electronically submitted by Dinora Castillo ([email or web address]). I personally scribed for GIANNA FREGOSO MD ([email or web address]) on 05/08/25 at 20:08. Electronically submitted by Dinora Castillo ([email or web address]). GIANNA FREGOSO MD May 08, 2025 19:25
[2025-05-08 19:58] LABS: Hematocrit 47.3 % (41.0-53.0); Hemoglobin 16.0 g/dL (13.5-17.5); Mean Corpuscular Hemoglobin 31.6 pg (28.0-32.0); Mean Corpuscular Volume 93.2 fL (80.0-100.0); Nucleated Red Blood Cells % 0.2 %
--- NOTE | 2025-05-08 20:06 | DVH ---
CHEST RADIOGRAPH Indication: chest pain Technique: Single frontal view of the chest was obtained Comparison: XY CHEST PORTABLE on DOS: 04/27/23, XY CHEST PORTABLE on DOS: 02/26/23, XY CHEST PORTABLE on DOS: 02/25/23 FINDINGS: Lines and Tubes: None Lungs: No focal consolidation. Pleura: No effusion. No pneumothorax. Cardiomediastinal contours: Unremarkable Bones: No acute osseous abnormality. IMPRESSION: 1. No acute cardiopulmonary disease.
[2025-05-08 20:07] LABS: Alanine Aminotransferase 24 U/L (7-40); Albumin 4.2 g/dL (3.2-4.8); Alkaline Phosphatase 63 U/L (46-116); Anion Gap 11 (5-15); BUN/Creatinine Ratio 9.2 (10.0-20.0); Bilirubin, Total 0.5 mg/dL (0.2-1.0); Blood Urea Nitrogen 13 mg/dL (9-23); Calcium 9.4 mg/dL (8.7-10.4); Carbon Dioxide 29 mmol/L (20-31); Total Protein 7.5 g/dL (5.7-8.2)
[2025-05-08 20:16] LABS: Chloride 107 mmol/L (98-107); Potassium 3.5 mmol/L (3.5-5.1); Sodium 147 mmol/L (136-145)
[2025-05-08 20:20] LABS: Glucose 47 mg/dL (74-106)
[2025-05-08 20:47] VITALS: BP 134/71; PULSE 89; RESP 18; TEMP 98.6; O2SAT 98
--- NOTE | 2025-05-08 21:28 | ECG ---
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
--- NOTE | 2025-05-08 21:28 | ECG ---
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
== END 2025-05-08 22:07 | disposition home or self-care (01) ==
LOC: ER 18:47
DX: R07.89 Other chest pain (principal); E78.5 Hyperlipidemia, unspecified; I11.0 Hypertensive heart disease with heart failure; I50.9 Heart failure, unspecified; I48.91 Unspecified atrial fibrillation; E11.9 Type 2 diabetes mellitus without complications; Z79.899 Other long term (current) drug therapy; Z79.84 Long term (current) use of oral hypoglycemic drugs; Z79.52 Long term (current) use of systemic steroids; Z79.51 Long term (current) use of inhaled steroids; Z79.01 Long term (current) use of anticoagulants; Z88.8 Allergy status to other drugs, medicaments and biological substances
CPT/HCPCS: 36415; 71045; 80053; 82947; 82962; 83880; 84484; 85025; 93005